=== PATIENT | female | born 1975 | race Caucasian/White ===

== ENCOUNTER 2024-06-18 19:38 | Emergency (ER) | payer BC ==
[~2024-06-18] VITALS: Ht 162.6 cm; Wt 95.3 kg
[2024-06-18] MEDS ORDERED: ASPIRIN 81 MG TAB.CHEW ONE (20:42)
[2024-06-18] MEDS ORDERED: NITROGLYCERIN OINT 1 GM PACKET TP ONE (20:43)
[2024-06-18] MEDS: NITROGLYCERIN OINT 1 GM PACKET TP ONE (20:46)
[2024-06-18] MEDS: ASPIRIN 81 MG TAB.CHEW PO ONE (20:46)
[2024-06-18 21:40] LABS: BASOPHILS # (AUTO) 0.1 K/UL (0.0-0.2); BASOPHILS % (AUTO) 0.8 % (0.0-2.0); EOSINOPHILS % (AUTO) 0.3 % (0.0-7.0); HEMOGLOBIN 13.3 g/dL (10.9-14.3); LYMPHOCYTES % (AUTO) 23.9 % (20.5-51.5); MEAN CORPUSCULAR HEMOGLOBIN 28.1 uug (24.7-32.8); MEAN CORPUSCULAR HGB CONC 33 g/dL (32.3-35.6); MEAN CORPUSCULAR VOLUME 84.3 fL (75.5-95.3); MONOCYTES # (AUTO) 0.6 K/uL (0.1-1.30); MONOCYTES % (AUTO) 7.4 % (0.0-11.0); NEUTROPHILS # (AUTO) 5.6 K/uL (1.8-8.9); NEUTROPHILS % (AUTO) 67.6 % (38.5-71.5); PLATELET COUNT (AUTO) 305 K/uL (179-408); RED BLOOD CELL COUNT(AUTO) 4.74 MIL/uL (3.63-4.92); RED CELL DISTRIBUTION WIDTH 15.6 % (12.3-17.7); WHITE BLOOD COUNT (AUTO) 8.3 K/uL (3.8-11.8)
[2024-06-18 21:58] LABS: DIFFERENTIAL COMMENT 1
[2024-06-18 22:04] LABS: CALCIUM 9.1 mg/dL (8.5-10.1); CARBON DIOXIDE 24 mmol/L (21-32); CHLORIDE 102 mmol/L (98-107); GLUCOSE 110 mg/dL (74-106); POTASSIUM 3.9 mmol/L (3.5-5.1); SODIUM SERUM 138 mmol/L (136-145); UREA NITROGEN, BLOOD 9 mg/dL (7-18)
[2024-06-18 22:17] LABS: ACETAMINOPHEN < 2.0 ug/mL (10-30)
[2024-06-18 22:18] LABS: ETHANOL < 3 MG/DL (0-10)
[2024-06-18 22:24] LABS: ALANINE AMINOTRANSFERASE < 6 U/L (14-59); ALBUMIN 3.7 g/dL (3.4-5.0); ALKALINE PHOSPHATASE 64 U/L (50-136); ASPARTATE AMINOTRANSFERASE 25 U/L (15-37); BILIRUBIN,DIRECT 0.1 mg/dL (0.0-0.2); BILIRUBIN,TOTAL 0.4 mg/dL (0.2-1.0); NT-PRO BNP 204 pg/mL (0-125); TOTAL PROTEIN, SERUM 7.3 g/dL (6.4-8.2)
[2024-06-18 22:38] LABS: THYROID STIMULATING HORMONE 1.545 mIU/mL (0.358-3.740)
[2024-06-18] MEDS ORDERED: ONDANSETRON 4 MG/2 ML VIAL ONE (23:54)
[2024-06-18] MEDS ORDERED: HYDROMORPHONE 1 MG/1 ML DISP.SYRIN ONE (23:54)
[2024-06-18] MEDS: HYDROMORPHONE 1 MG/1 ML DISP.SYRIN IV ONE (23:55)
[2024-06-18] MEDS: ONDANSETRON 4 MG/2 ML VIAL IV ONE (23:55)
[2024-06-19] MEDS ORDERED: HYDR-3641 PO (09:18)
[2024-06-19] MEDS ORDERED: METO50TA16 PO (09:18)
[2024-06-19] MEDS ORDERED: LOSA1TAB36 PO (09:18)
[2024-06-19] MEDS ORDERED: CLONIDINE HCL 0.1 MG TABLET ONE (09:33)
[2024-06-19 09:34] VITALS: BP 149/81
[2024-06-19] MEDS: CLONIDINE HCL 0.1 MG TABLET PO ONE (09:34)
[2024-06-19 10:38] VITALS: O2SAT 99
== END 2024-06-19 12:29 | disposition home or self-care (01) ==
LOC: ER 19:38
DX: R51.9 Headache, unspecified (principal); R00.2 Palpitations; F41.9 Anxiety disorder, unspecified; R45.851 Suicidal ideations; F32.A Depression, unspecified; R05.9 Cough, unspecified; F17.210 Nicotine dependence, cigarettes, uncomplicated; Z20.822 Contact with and (suspected) exposure to COVID-19
CPT/HCPCS: 87804 ×2; 80076; 80048; 83880; 84443; 85025; 85379; 87426; 84484; 36415; 71045; 70450; 93005; 99285; 96374; 96375; 80299; 80320; 80307; J2405; J1171; A4606; A4663; G0480